=== PATIENT | female | born 1955 | race Caucasian/White ===

== ENCOUNTER 2019-04-28 09:06 | Day surgery (SDC) | payer OTHER ==
[~2019-04-28 09:06] MED LIST: Acetaminophen TAB* 325 MG PO PRN; Buffered Lidocaine 1% SYRIN* 1 ML/SYRINGE INTRADERM ONE
[2019-04-28] MEDS ORDERED: Midazolam* 1 MG/ML 2 ML VIAL (2 MG) ONE (09:39)
[2019-04-28] MEDS ORDERED: fentaNYL* 50 MCG/ML 2 ML VIAL (100 MCG VIAL) ONE (10:11)
[2019-04-28 10:45] VITALS: BP 127/81
[2019-04-28] MEDS ORDERED: Ketorolac 0.5% OPHTH (NF) 0.5 % 5 ML BTL ONE (11:13)
[2019-04-28] MEDS ORDERED: Neomycin/Polymy/Dex OPHTH.OIN* 3.5 GM ONE (11:13)
[2019-04-28] MEDS ORDERED: Cyclopentolate 1% OPTH.SOL* 2 ML BTL ONE (11:13)
[2019-04-28] MEDS ORDERED: Phenylephrine OPHTH SOL 2.5%* 2 ML ONE (11:13)
[2019-04-28] MEDS ORDERED: Tropicamide 1% OPTH.SOL* BTL ONE (11:13)
[2019-04-28] MEDS ORDERED: Lidocaine 1% MPF ** 5 ML VIAL ONE (11:13)
[2019-04-28] MEDS ORDERED: Tetracaine 0.5% OPTH.SOL 4 ML* 1 DROP BTL ONE (11:13)
--- NOTE | 2019-04-28 14:04 | OP ---
OPERATIVE REPORT: DATE OF OPERATION: 04/28/19 DATE OF : 53 SURGEON: Dr. Francisco Cevallos. TELEGRAPHIC INSTRUMENT SUPERVISOR: None. ANESTHESIA: Topical with intravenous sedation. PRE-OP DIAGNOSIS: Cataract with astigmatism, right eye. POST-OP DIAGNOSIS: Cataract with astigmatism, right eye. OPERATIVE PROCEDURE: Phacoemulsification and cataract extraction with posterior chamber toric intrao cular lens implant, right eye. BLOOD LOSS: None. OPERATIVE FINDINGS: The patient was seen preoperatively. A ty was made at the 6 o'clock position of the limbus with a marking pen while she was in an upright position. The patient was subsequently brought to the operating room and given intravenous sedation. A drop of tetracaine was placed into h er right eye. The patient was prepped and draped in the usual sterile fashion for ophthalmic surgery . Attention was directed to the right eye where a speculum was placed. A paracentesis was created at the 11 o'clock position and 0.1 cc of 1% preservative- free lidocaine was injected into the anterior chamber followed by DisCoVisc. The eye was digitally stabilized while a 2.75 mm keratome was used t o create a triplanar clear corneal incision at the 9 o'clock position. A continuous curvilinear caps ulorrhexis was created with a cystotome and Utrata forceps. BSS on a cannula was used to hydrodissec t the lens from the capsule. Phacoemulsification was performed in a rnbslm-whi-[id number] technique to create 4 fragments which were removed. Residual cortical material was removed with irrigation and as piration. The capsular bag was polished. Provisc was placed into the capsular bag and anterior chamb er. The intraocular pressure was measured and found to be appropriate. The ORA device was employed while the surface of the eye was lubricated. The ORA device guided the lens choice to a [id number] 22.5- diopter lens. This lens was opened and inserted into the capsular bag atraumatically. The lens was r otated to the appropriate axial alignment of 178 degrees. A Sinskey hook was placed through the para centesis to stabilize the lens while irrigation and aspiration was performed to remove viscoelastic f rom the eye. The Sinskey hook was then removed from the eye. BSS on a cannula was used to hydrate t he corneal stroma and seal the wound. At the end of the case, the pupil was round. The lens was elizabeth tered, stable and axially aligned. The eye pressure appeared normal and the wound was watertight. T he speculum was removed and topical Maxitrol ointment was placed on the surface of the eye. The eye was closed, patched, and shielded and the patient was sent to the recovery room in stable condition w ith postoperative instructions and followup appointment given. [id number] #: [id number]
== END 2019-04-28 11:00 | disposition home or self-care (01) ==
LOC: OREAST 09:06
PROVIDERS: ATTEND Ophthalmology
DX: H25.11 Age-related nuclear cataract, right eye (principal); H52.201 Unspecified astigmatism, right eye; I10 Essential (primary) hypertension; F17.210 Nicotine dependence, cigarettes, uncomplicated; F41.8 Other specified anxiety disorders
CPT/HCPCS: A9270-GY; J2250; J3010; V2787

== ENCOUNTER 2019-05-05 10:55 | Day surgery (SDC) | payer OTHER ==
[2019-05-05] MEDS ORDERED: Midazolam* 1 MG/ML 2 ML VIAL (2 MG) ONE (12:48)
[2019-05-05 13:17] VITALS: BP 128/81
[2019-05-05] MEDS ORDERED: Neomycin/Polymy/Dex OPHTH.OIN* 3.5 GM ONE (14:11)
[2019-05-05] MEDS ORDERED: Ketorolac 0.5% OPHTH (NF) 0.5 % 5 ML BTL ONE (14:11)
[2019-05-05] MEDS ORDERED: Cyclopentolate 1% OPTH.SOL* 2 ML BTL ONE (14:11)
[2019-05-05] MEDS ORDERED: Lidocaine 1% MPF ** 5 ML VIAL ONE (14:11)
[2019-05-05] MEDS ORDERED: Phenylephrine OPHTH SOL 2.5%* 2 ML ONE (14:11)
[2019-05-05] MEDS ORDERED: Tropicamide 1% OPTH.SOL* BTL ONE (14:11)
[2019-05-05] MEDS ORDERED: Tetracaine 0.5% OPTH.SOL 4 ML* 1 DROP BTL ONE (14:11)
--- NOTE | 2019-05-05 14:31 | OP ---
DATE OF OPERATION/DATE OF DICTATION: 05/05/2019 - [facility] DATE OF : 1955. SURGEON: Dr. Francisco Cevallos. 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 ANESTHESIA: Topical with intravenous sedation. PRE-OP DIAGNOSIS: Cataract, left eye. POST-OP DIAGNOSIS: Cataract, left eye. OPERATIVE PROCEDURE: Phacoemulsification and cataract extraction with posterior chamber intraocular lens implant, left eye. COMPLICATIONS: None. BLOOD LOSS: None. DESCRIPTION OF PROCEDURE: The patient was brought to the operating room and received a small amount of intravenous sedation. A drop of Tetracaine was placed in her left eye. She was prepped and draped in the usual sterile fashion for ophthalmic surgery and attention was directed to the left eye where a speculum was placed. A paracentesis was created at the 5 o'clock position and 0.1 cc of 1 percent preservative-free Lidocaine was injected into the anterior chamber followed by DisCoVisc. The eye was digitally stabilized while a 2.75 mm keratome was used to create a triplanar clear corneal incision at the 3 o'clock position. A continuous curvilinear capsulorrhexis was created with a cystotome and Utrata forceps. BSS on a cannula was used to hydrodissect the lens from the capsule. Phacoemulsification was performed in a divide-and- conquer technique to create four fragments which were removed. Residual cortical material was removed with irrigation and aspiration. DisCoVisc was used to inflate the capsular bag and an AUOOTO 22.0 diopter lens was folded and inserted into the capsular bag. DisCoVisc was removed using irrigation and aspiration. BSS on a cannula was used to hydrate the corneal stroma and seal the wound. At the end of the case the pupil was round and the lens was centered. The eye was of normal pressure and the wound was water tight. The speculum was removed and topical Maxitrol ointment was placed on the surface of the eye. The eye was closed, patched and shielded and the patient was sent to the recovery room in stable condition with post operative instructions and follow-up appointment given. [id number]/[facility] #: [id number] MTDD
== END 2019-05-05 13:43 | disposition home or self-care (01) ==
LOC: OREAST 10:55
PROVIDERS: ATTEND Ophthalmology
DX: H25.12 Age-related nuclear cataract, left eye (principal); I10 Essential (primary) hypertension; E03.9 Hypothyroidism, unspecified
CPT/HCPCS: A9270-GY; J2250; V2632